=== PATIENT | male | born 2000 | race Two or more races ===

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

== ENCOUNTER 2021-01-09 12:35 | Emergency (ER) | payer OTHER ==
[2021-01-09 13:19] LABS: RAPID STREP SCREEN Negative (Negative)
--- NOTE | 2021-01-09 14:08 | ED Physician Documentation ---
PD HPI HEENT - Stated complaint Stated Complaint: SORE THROAT,COUGH - Chief complaint Chief Complaint: Heent - History obtained from History obtained from: Patient - Additional information Additional information: Sore throat last night, worse today associated with cold sweats and a mild cough. He is not short of breath and has no myalgias. He has been vaccinated against Covid with [employer] vaccine. No sick exposures or travel. Review of Systems Constitutional: reports: Sweats. denies: Fever, Chills Nose: reports: Rhinorrhea / runny nose Throat: reports: Sore throat Respiratory: reports: Cough. denies: Dyspnea PD PAST MEDICAL HISTORY - Past Medical History Past Medical History: No Cardiovascular: None Respiratory: None Neuro: None Endocrine/Autoimmune: None GI: None : None HEENT: None Psych: None Musculoskeletal: None Derm: None - Past Surgical History Past Surgical History: No - Present Medications Home Medications: Ambulatory Orders Medication Instructions Recorded Confirmed No Known Home Medications 01/09/21 01/09/21 - Allergies Allergies/Adverse Reactions: Allergies Allergy/AdvReac Type Severity Reaction Status Date / Time No Known Drug Allergies Allergy Verified 01/09/21 12:56 - Social History Does the pt smoke?: No Smoking Status: Never smoker Does the pt drink ETOH?: Yes Does the pt have substance abuse?: No - Immunizations Immunizations are current?: Yes PD ED PE NORMAL - Vitals Vital signs reviewed: Yes - General General: Alert and oriented X 3, No acute distress - HEENT HEENT: Other (Mildly red tonsillar pillars without exudates or swelling. No cervical adenopathy.) - Neck Neck: Supple, no meningeal sign, No bony TTP, No adenopathy - Respiratory Respiratory: No respiratory distress, Clear bilaterally - Derm Derm: Normal color, Warm and dry, No rash - Neuro Neuro: Alert and oriented X 3 Results - Vitals Vitals: Vital Signs - 24 hr 01/09/21 12:56 Temperature 36.8 C Heart Rate 63 Respiratory 18 Rate Blood Pressure 118/79 O2 Saturation 100 Oxygen O2 Source Room air - Labs Labs: Laboratory Tests 01/09/21 12:00 Group A Strep Rapid Negative Departure - Departure Disposition: 01 Home, Self Care Clinical Impression: Viral pharyngitis Condition: Good Record reviewed to determine appropriate education?: Yes Instructions: ED Pharyngitis Viral Comments: Tylenol or ibuprofen as needed for pain. Rest and drink plenty of fluids. You have a Covid test pending. You need to self quarantine until the result is done and negative. Do not leave your house. Do not get near anybody. The results should be done in 48 to 72 hours. We will call with a positive result, the fastest way to get a negative result for confirmation though is to go to the hospital website at [email or web address], click on the my [email or web address] tab and sign up for the patient portal. If any friends or family get sick and would like to have a Covid test done, but do not have signs or symptoms that would necessitate being hospitalized, there are multiple local options for Covid testing. [facility] keeps an updated list of testing and vaccination options at: [email or web address]. Forms: Activity restrictions
[2021-01-09 14:35] VITALS: BP 119/82
--- NOTE | 2021-01-11 16:59 | ED Physician Documentation ---
ED Addendum - Addendum Addendum: 01/11/21 16:58 Throat culture was reviewed and positive group C strep. We will prescribe Pen- Vee K and send this to [facility] for the patient. Departure - Departure Disposition: 01 Home, Self Care Clinical Impression: Viral pharyngitis Condition: Good Instructions: ED Pharyngitis Viral Prescriptions: Penicillin V Potassium 500 mg PO Q6HR #40 tablet Comments: Tylenol or ibuprofen as needed for pain. Rest and drink plenty of fluids. You have a Covid test pending. You need to self quarantine until the result is done and negative. Do not leave your house. Do not get near anybody. The results should be done in 48 to 72 hours. We will call with a positive result, the fastest way to get a negative result for confirmation though is to go to the hospital website at [email or web address], click on the my [employer] tab and sign up for the patient portal. If any friends or family get sick and would like to have a Covid test done, but do not have signs or symptoms that would necessitate being hospitalized, there are multiple local options for Covid testing. [facility] keeps an updated list of testing and vaccination options at: [email or web address]. Forms: Activity restrictions Discharge Date/Time: 01/09/21 14:35
== END 2021-01-09 14:35 | disposition home or self-care (01) ==
LOC: ED 12:35
DX: J02.8 Acute pharyngitis due to other specified organisms (principal); Z20.822 Contact with and (suspected) exposure to COVID-19
CPT/HCPCS: 87070; 87430; 99282; 99283